=== PATIENT | male | born 1965 | race Caucasian/White ===

== ENCOUNTER 2016-05-09 16:58 | Inpatient (IN) | payer MEDICARE ==
[~2016-05-09] VITALS: Ht 172.7 cm; Wt 108.7 kg
--- NOTE | ~2016-05-09 | ENPV ---
Vascular Lower Extremities DVT Study Procedure Demographics Patient Name WALE REYEZ Date of Study 05/09/2016 Patient Number [id number] Gender Male Date of 1965 Age 51 Visit Number [id number] Height Accession Number [id number] Weight Room Number G3209 BSA BMI Referring Balbir HERNANDEZ Interpreting Jaison Berry MD Physician Physician Physician Ordering Physician Balbir HERNANDEZ Elastic [employer] Christine Lamar [facility] Conclusions Summary Right CFV exhibits partial acute DVT. The right proximal, mid and distal femoral veins exhibit acute occlusive DVT as well as the proximal and distal segments of the Popliteal vein and the posterior and peroneal veins in the calf. Right lower extremity is Positive for Acute DVT. The comparison Left Common Femoral Vein exhibits venous stasis but is compressible with phasic flow and color Doppler fill. Procedure Type of Study: Veins:Lower Extremities DVT Study, Lower Extremity Right. Appropriate Use Criteria:7 Patient Status:Routine. Study Location:ER. - Preliminary reported to:Liu Mcgregor [facility]. Velocities are measured in cm/s ; Diameters are measured in cm Right Lower Extremities DVT Study Measurements Right 2D and Doppler Measurements + + + + +------+------+ + !Location !Visualized!Compressibility!Thrombosis!Signal!Reflux!Reflux ! ! ! ! ! ! ! !(sec) ! + + + + +------+------+ + !GSV Thigh !Yes !No !Acute ! ! ! ! + + + + +------+------+ + !Common !Yes !No !Acute ! ! ! ! !Femoral ! ! ! ! ! ! ! + + + + +------+------+ + !Prox !Yes !No !Acute ! ! ! ! !Femoral ! ! ! ! ! ! ! + + + + +------+------+ + !Mid Femoral!Yes !No !Acute ! ! ! ! + + + + +------+------+ + !Dist !Yes !No !Acute ! ! ! ! !Femoral ! ! ! ! ! ! ! + + + + +------+------+ + !Popliteal !Yes !No !Acute ! ! ! ! + + + + +------+------+ + !Gastroc !Yes !No !Acute ! ! ! ! + + + + +------+------+ + !PTV !Yes !No !Acute ! ! ! ! + + + + +------+------+ + !Peroneal !Yes !No !Acute ! ! ! ! + + + + +------+------+ + Left Lower Extremities DVT Study Measurements Left 2D and Doppler Measurements + + + + +------+------+ + !Location !Visualized!Compressibility!Thrombosis!Signal!Reflux!Reflux ! ! ! ! ! ! ! !(sec) ! + + + + +------+------+ + !Common !Yes !Yes ! ! ! ! ! !Femoral ! ! ! ! ! ! ! + + + + +------+------+ + Impressions Right Impression Right CFV exhibits partial acute DVT. The right proximal, mid and distal femoral veins exhibit acute occlusive DVT as well as the proximal and distal segments of the Popliteal vein and the posterior and peroneal veins in the calf. Positive for Acute DVT Left Impression The comparison Left Common Femoral Vein exhibits venous stasis but is compressible with phasic flow and color Doppler fill. Signature dtt: STEPHANIE PAREDES: 05/09/16 1903 Physician Self Edit
--- NOTE | ~2016-05-09 | HP ---
PATIENT'S NAME: WALE REYEZ [facility] AGE: 51 Y [address] ROOM: [address] [address] LOCATION: [facility] [place] ADMIT DATE: 05/09/2016 History & Physical DISCHARGE DATE: FAMILY PHYSICIAN: Physician, Unknown ATTENDING PHYSICIAN: Jose Montoya DATE OF SERVICE: PRIMARY CARE PHYSICIAN: None. CHIEF COMPLAINT: Right thigh tightness. HISTORY OF PRESENT ILLNESS: This is a 51-year-old male who states that he started experiencing right thigh tightness about 4 days ago. The patient states that he has not been very mobile since he has nothing to do for the past few months. He did not take any long trip. He denies any airplane trip as well. The patient does not have any history of hypercoagulability in his family. The patient states that he started experiencing right thigh pain and a sensation of twisting and cramping in his right thigh. He then presented today. He was found to have right lower extremity DVT. At the time of my examination, the patient denies any chest pain or shortness of breath. Denies any head trauma or loss of consciousness. He did have a seizure that is probably likely a syncopal episode a few months ago in summer. He is not on any seizure medication. He denies any lightheadedness currently. Denies any abdominal pain, diarrhea, or constipation. No other complaints at this point in time. REVIEW OF SYSTEMS: A 10-point review of systems was done and was, otherwise, negative except as mentioned above. PAST MEDICAL HISTORY: 1. History of seizure/syncopal episode. 2. History of anxiety. PAST SURGICAL HISTORY: 1. Left shoulder injury. 2. Bilateral ankle injuries. 3. Bilateral groin hernia surgery. ALLERGIES: PATIENT'S NAME: DEREJE [facility] AGE: 51 Y [address] ROOM: [address] [address] LOCATION: [facility] [place] ADMIT DATE: 05/09/2016 History & Physical DISCHARGE DATE: FAMILY PHYSICIAN: Physician, Unknown ATTENDING PHYSICIAN: Jose Montoya NONE REPORTED. HOME MEDICATIONS: Per MAY. SOCIAL HISTORY: The patient smokes 2 to 3 packs per week for the past 20 years. Occasional alcohol use reported. PHYSICAL EXAMINATION: VITAL SIGNS: Temperature 98.0; pulse 98, regular; respirations 18; blood pressure 164/97; saturation 97% on room air. GENERAL: The patient is alert and oriented x3. Answers all questions appropriately. No acute distress. HEENT: Head; normocephalic, atraumatic. Pupils are equal, round, and reactive to light. Extraocular muscles intact. Oropharynx moist. NECK: Supple. No nuchal rigidity. No lymphadenopathy. HEART: Regular rate and rhythm. LUNGS: Clear to auscultation bilaterally. ABDOMEN: Soft, nontender, nondistended. Bowel sounds present. EXTREMITIES: No clubbing, cyanosis, or edema. VASCULAR: Pulses 2+ distally bilaterally. NEUROLOGIC: The patient is alert and oriented x3. Follows all commands. Moves all extremities. Cranial nerves 2 through 12 grossly intact. Deep tendon reflexes 2+/4. Sensation intact in bilateral upper and lower extremities. DIAGNOSTIC STUDIES: A CBC was done in the ER, showed a white count of 11.9, hemoglobin 15.5, hematocrit 45.6, platelets 318. PT 10.0, INR 1.0, and PTT 29. CMS pending. ESR and CRP pending. Hypercoagulable workup pending. Chest x-ray and EKG pending at this point of time. ASSESSMENT AND PLAN: A 51-year-old male presenting with right groin pain. 1. Right lower extremity deep venous thrombosis. Discussed about heparin GTT with the patient. The patient will be placed on heparin GTT. Hypercoagulable workup will be done for the patient. 2. History of seizure/syncopal episode. The patient is currently not on any antiseizure medication. Monitor. 3. History of anxiety. Continue Klonopin per home regimen. 4. Deep vein thrombosis prophylaxis. The patient is on long-term anticoagulation with heparin GTT. 5. History of renal insufficiency. We will monitor his creatinine. 6. Code status: Full code. Discussed with the patient at the time of PATIENT'S NAME: WALE REYEZ [facility] AGE: 51 Y [address] ROOM: [address] [address] LOCATION: [facility] [place] ADMIT DATE: 05/09/2016 History & Physical DISCHARGE DATE: FAMILY PHYSICIAN: Physician, Unknown ATTENDING PHYSICIAN: Jose Montoya admission. JOSE MONTOYA MD MT/katharine /[id number] D: [id number] T: [id number] HISTORY & PHYSICAL
--- NOTE | ~2016-05-09 | ER ---
PATIENT'S NAME: WALE REYEZ [facility] AGE: 51 Y [address] ROOM: [place] [address] LOCATION: [facility] [place] ADMIT DATE: 05/09/2016 ER/Outpatient Report DISCHARGE DATE: FAMILY PHYSICIAN: Physician, Unknown ATTENDING PHYSICIAN: Jose Earl Time of Arrival: 1658 hours. Time of Evaluation: 1740 hours. CHIEF COMPLAINT: Right leg pain. HISTORY OF PRESENT ILLNESS: This is a 51-year-old male who presents to the ER who states that he has had some pain in the inside of his right upper thigh for approximately 3-4 days. The patient states that his pain started when he woke up one morning. He does not really remember injuring his leg. The patient states that the pain in that area is worse with standing. He states that he does have difficulty with lifting his leg and he is having the limp due to pain in his leg. He has never had anything like this before. He has not noticed any lesions or rashes to the leg. No redness, but he feels like his leg is swollen. He states he also has pain that radiates in his legs when he bears down to have a bowel movement. He has not been running any fevers. He denies any chest pain, no shortness of breath. No cough. No other problems at this time. ALLERGIES: NO KNOWN ALLERGIES. MEDICATIONS: Please see medication list in nurse's notes. PAST MEDICAL HISTORY: 1. Question on renal insufficiency. 2. Seizures. 3. Anxiety. 4. He has had left shoulder injury. 5. Bilateral ankle injuries. 6. Bilateral groin hernia repairs. SOCIAL HISTORY: He does smoke 2-3 packs of cigarettes a week. He drinks alcohol 1-2 times a month. He does have a history of cocaine and meth abuse, but he has not used it in the last year. REVIEW OF SYSTEMS: PATIENT'S NAME: WALE REYEZ [facility] AGE: 51 Y [address] ROOM: [place] [address] LOCATION: [facility] [place] ADMIT DATE: 05/09/2016 ER/Outpatient Report DISCHARGE DATE: FAMILY PHYSICIAN: Physician, Unknown ATTENDING PHYSICIAN: Jose Earl A 10-point review of system was completed and was negative with the exception of those discussed in the HPI. PHYSICAL EXAMINATION: VITAL SIGNS: Height 5 feet 8 inches stated, weight 110.8 kg taken, blood pressure is 164/92, pulse 90, respirations 18, temperature 98 degrees with the temporal scanner, saturations 97% on room air. Jr Coma Score is 15. GENERAL: Alert, calm, well-developed, 51-year-old, in no acute distress. HEENT: Head: Normocephalic. He does display moist mucous membranes. Eyes: Pupils are equal and reactive to light. NECK: Supple. No lymphadenopathy. LUNGS: Clear to auscultation bilaterally. No wheezes or crackles. Normal respiratory effort. HEART: Regular rate and rhythm. No lifts, thrills, or murmurs. ABDOMEN: Soft, it is nontender. He has good bowel sounds throughout. No masses were palpated. : He has no tenderness in his scrotum. No redness or swelling noted. EXTREMITIES: He does have decreased strength in his right lower extremity compared to his left. He has good sensation distally to that right extremity, but he states it does feel different than his left. He has good pedal pulses bilaterally. He has good reflexes bilaterally in the lower extremities. Full range of motion of all limbs. NEUROLOGICAL: Cranial nerves 2 through 12 grossly intact. Gait was steady with a slight limp. LABORATORY DATA: CBC: White count is 11.9, hemoglobin is 15.5, platelets 218. ANC is 7.6. Sedimentation rate is 58. CMS: BUN 14, creatinine 1.0, sodium 138, potassium 4.0, estimated GFR is greater than 60. CRP is 7.21, PT and PTT were drawn. PTT was 29. INR is 1.0. The venous Doppler of his right lower extremity does show that he has a clot in his common femoral from his upper thigh all the way down his leg. IMPRESSION: Deep vein thrombosis to right lower extremity. ASSESSMENT AND PLAN: Discussed the patient's care with Dr. Andino. The patient did not require any pain medication while he was here. He did rest comfortably his entire stay. He does state that he does not have a primary care physician. Therefore, I called Dr. Earl who is on-call for the Hospitalist Service, as he will be admitting the patient at this time. The patient understands and agrees with care. PATIENT'S NAME: WALE REYEZ [facility] AGE: 51 Y [address] ROOM: [address] [address] LOCATION: [facility] [place] ADMIT DATE: 05/09/2016 ER/Outpatient Report DISCHARGE DATE: FAMILY PHYSICIAN: Physician, Unknown ATTENDING PHYSICIAN: Jose Earl MILADY JENNINGS PA-C FOR DO JASE GUNDERSON/kunall /[id number] d: 05/10/16 0508 t: 05/17/16 1332, OUTPATIENT REPORT
[~2016-05-09 16:58] MED LIST: FOLIC ACID1 MG PO; KLONOPIN1 M1 PO; LEXAPRO10 MG PO; PHENOBARBITAL30 MG PO; THERAGRAN-M1 TAB PO; ULTRAM50 MG PO
[2016-05-09 19:14] LABS: BASOPHIL # 0.1 K/uL (0.0-0.2); BASOPHIL % 0.8 %; EOSINOPHIL # 0.5 K/uL (0.0-0.5); EOSINOPHIL % 4.6 %; HEMATOCRIT 45.6 % (37.0-53.0); HEMOGLOBIN 15.5 g/dL (12.0-17.0); IMMATURE GRANULOCYTE # 0.1 K/uL (0.0-0.3); IMMATURE GRANULOCYTE % 0.8 %; LYMPHOCYTE # 2.4 K/uL (0.8-4.0); MCH 31.9 pg (27.0-34.0); MCV 93.8 fl (83.0-98.0); MONOCYTE # 1.2 K/uL (0.0-1.0); MPV 9.5 fl (9.4-12.4); NEUTROPHIL # (ANC) 7.6 K/uL (1.4-9.0); NEUTROPHIL % 63.8 %; NRBC % 0 /100WBC (0-0.00); PLATELET COUNT 318 K/uL (150-450); RBC 4.86 M/uL (4.00-6.00); RDW-CV 12.8 % (11.9-14.6); WBC 11.9 K/uL (4.0-11.0)
[2016-05-09 19:58] LABS: CHLORIDE 107 mMol/L (96-110); CO2 21 mMol/L (22-32); SODIUM 138 mEq/L (135-145)
[2016-05-09 19:59] LABS: ALBUMIN 3.1 gm/dL (3.5-5.0); ALK PHOS 78 IU/L (33-138); ALT 32 IU/L (12-78); AST 22 IU/L (10-40); BLOOD UREA NITROGEN 14 mg/dL (6-24); CALCIUM 9.2 mg/dL (8.5-10.5); ESTIMATED GFR (MDRD EQUATION) > 60; TOTAL BILIRUBIN 0.3 mg/dL (0.0-1.5); TOTAL PROTEIN 8.1 g/dL (6.0-8.4)
[2016-05-10 02:26] LABS: BASOPHIL # 0.1 K/uL (0.0-0.2); BASOPHIL % 1.2 %; EOSINOPHIL # 0.6 K/uL (0.0-0.5); EOSINOPHIL % 5.6 %; HEMATOCRIT 41.3 % (37.0-53.0); HEMOGLOBIN 14.2 g/dL (12.0-17.0); IMMATURE GRANULOCYTE # 0.1 K/uL (0.0-0.3); IMMATURE GRANULOCYTE % 0.8 %; LYMPHOCYTE # 3.4 K/uL (0.8-4.0); MCH 32.1 pg (27.0-34.0); MCHC 34.4 gm/dL (32.0-36.5); MCV 93.2 fl (83.0-98.0); MPV 9.5 fl (9.4-12.4); NEUTROPHIL # (ANC) 5.4 K/uL (1.4-9.0); NEUTROPHIL % 51.4 %; NRBC % 0 /100WBC (0-0.00); PLATELET COUNT 324 K/uL (150-450); RBC 4.43 M/uL (4.00-6.00); WBC 10.6 K/uL (4.0-11.0)
--- NOTE | 2016-05-10 02:32 | NUR ---
THIS IS A 51 YEAR OLD MALE ADMITTED BY THE HOSPITALISTS FOR R LEG DVT. 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 PT HAS HX OF DEPRESSION AND ANXIETY, LIVES HERE IN [facility]/ HIS DAUGHTER. PT ON BE REST WITH HEPARIN PRTOTOCOL STARTED IN THE ER. PT IS AFEBRILE AND HAS MINIMAL C/O PAIN AT THE TIME OF ADMISSION TO THE FLOOR.
[2016-05-10 02:40] LABS: ANION GAP 13.8 (10.0-19.0); BLOOD UREA NITROGEN 14 mg/dL (6-24); CALCIUM 8.8 mg/dL (8.5-10.5); CHLORIDE 106 mMol/L (96-110); CO2 23 mMol/L (22-32); CREATININE 0.9 mg/dL (0.6-1.3); ESTIMATED GFR (MDRD EQUATION) > 60; POTASSIUM 3.8 mMol/L (3.7-5.1); SODIUM 139 mMol/L (135-145)
--- NOTE | 2016-05-10 04:12 | NUR ---
Significant Event:pt is a/o x3. pt is on bedrest, uses urinal.iv to l ac has heparin running @ 1800units with next ptt-hp @ 0930. this was started in er. vitals q 4 hrs, vss Follow up:next ptt-hp @0930
--- NOTE | 2016-05-10 13:02 | NUR ---
Met with patient at bedside today. Introduced myself and explained the role of the CM department. Patient is disabled. He lives with his daughter. He has Medicare and [place] Medicare Part [place] medication plan. DAVID Duong contacted [facility], as this is the pharmacy he uses, and if he is placed on Xarelto it will cost him $8 a month. Patient denies any concerns with discharge. WIll continue to follow him and offer supports as needed.
--- NOTE | 2016-05-10 16:30 | NUR ---
RECEIVED REFERRAL TO GET PATIENT A MEDICATION ASSIT CARD FOR XARELTO. I MEET WITH PATIENT AND GAVE HIM THE XARELTO CARD IF HE WOULD NEED IT UPON DISCHARGE.
--- NOTE | 2016-05-11 04:12 | NUR ---
Significant Event: Pt alert and oriented x3. Cooperative with cares. SBA. Heprin drip stoped last night 1 hour after xeralto started. Bedrest. no pain. no SOB. VSS. RA. VS q4hr. Follow up:
--- NOTE | 2016-05-11 11:40 | NUR ---
Phone call from JACOB Strauss late yesterday afternoon stating she gave patient a Xarelto discount prescription drug card. I went in and explained to patient today, that yesterday DAVID Duong called [facility] and with his prescription drug plan the Xarelto will only be $8 so he will want to see which is the best option for him, his prescription drug plan or the discount card. Also wants patient to get established with a PCP at [facility], but when I spoke to him and when DAVID Duong spoke to him he stated he does not want to go to [facility] because he had a bad experience there in the past. He would like to set up with a PCP at [facility]. I notified patient's nurse and charge nurse Yas of this so when they are doing his discharge papers they will get him an appointment at that practice. Toma Salmon is also aware of patient's choice of PCP practices. Patient should discharge to home with no additional needs today.
[2016-05-11] MEDS ORDERED: XARELTO15 MG PO (14:26)
[2016-05-11] MEDS ORDERED: TYLENOL325 MG PO (14:27)
[2016-05-11] MEDS ORDERED: XARELTO20 MG PO (14:28)
[2016-05-11] MEDS ORDERED: ULTRAM50 MG PO (14:28)
--- NOTE | 2016-05-11 15:04 | NUR ---
Patient is discharged in stable condition. IV was removed. Education given about preventing DVTs, post hospitalization for DVT, Xarelto and Tramadol. Patient verbalizes understanding. Instructions given to follow up with Dr. Adams on sunday at 10am. Patient was transferred out to his friends vehicle via wheelchair.
== END 2016-05-11 14:45 | disposition disaster alternative care site (69) | DRG 300 ==
LOC: GMED 16:58 → GMSU 20:59
PROVIDERS: Physician Assistant Medical; ADMIT Family Medicine
DX: I82.401 Acute embolism and thrombosis of unspecified deep veins of right lower extremity (principal); D68.59 Other primary thrombophilia; E66.01 Morbid (severe) obesity due to excess calories; Z68.36 Body mass index [BMI] 36.0-36.9, adult; F17.210 Nicotine dependence, cigarettes, uncomplicated; Z79.01 Long term (current) use of anticoagulants; F41.9 Anxiety disorder, unspecified; Z72.89 Other problems related to lifestyle
CPT/HCPCS: G0378; J1644